=== PATIENT | male | born 1995 | race Caucasian/White ===

== ENCOUNTER 2020-03-06 21:53 | Emergency (ER) | payer OTHER ==
[~2020-03-06] VITALS: Ht 172.7 cm; Wt 106.2 kg
[~2020-03-06 21:53] MED LIST: ADVAIR DISKUS IN; ALBUTEROL2.5 MG/3 M IN; BENADRYL 50MG C50 MG OR; BENADRYL25 M1 OR; CEPHALEXIN500 MG PO; MEDDOSEPAK PO; NO; PERCOCET 5/325M1 TAB OR; PROAIR HFA IN; STERAPRED DS10 MG PO; ULTRAM50 M1 PO; ZYRTEC10 M2 PO
[2020-03-06 23:13] VITALS: BP 113/57
== END 2020-03-07 00:40 | disposition home or self-care (01) | DRG 563 ==
LOC: ED 21:53
DX: S39.012A Strain of muscle, fascia and tendon of lower back, initial encounter (principal); S70.02XA Contusion of left hip, initial encounter; S80.211A Abrasion, right knee, initial encounter; S50.312A Abrasion of left elbow, initial encounter; S30.1XXA Contusion of abdominal wall, initial encounter; V49.40XA Driver injured in collision with unspecified motor vehicles in traffic accident, initial encounter

== ENCOUNTER 2020-03-21 10:26 | Emergency (ER) | payer SELFPAY ==
[~2020-03-21] VITALS: Ht 172.7 cm; Wt 105.0 kg
[2020-03-21] MEDS ORDERED: AMOX/K CLAV875 M1 PO ×2 (11:43→12:06)
[2020-03-21 12:02] VITALS: BP 129/89
== END 2020-03-21 12:02 | disposition home or self-care (01) | DRG 951 ==
LOC: ED 10:26
DX: F17.200 Nicotine dependence, unspecified, uncomplicated (principal); J02.9 Acute pharyngitis, unspecified; Z20.828 Contact with and (suspected) exposure to other viral communicable diseases

== ENCOUNTER 2022-09-20 13:49 | Emergency (ER) | payer SELFPAY ==
[~2022-09-20] VITALS: Ht 172.7 cm; Wt 137.0 kg
[~2022-09-20 13:49] MED LIST changes: +AMOX/K CLAV875 M1 PO
[2022-09-20 15:14] VITALS: BP 110/69
== END 2022-09-20 15:28 | disposition home or self-care (01) | DRG 179 ==
LOC: ED 13:49
DX: U07.1 COVID-19 (principal); J02.9 Acute pharyngitis, unspecified